=== PATIENT | female | born 1950 | race Caucasian/White ===

== ENCOUNTER 2022-10-17 20:41 | Emergency (ER) | payer BC, MEDICARE ==
[2022-10-17 21:22] LABS: BASOPHILS ABSOLUTE AUTO 0.02 K/mm3 (0.01-0.08); BASOPHILS PERCENT AUTO 0.2 % (0.1-1.2); EOSINOPHILS ABSOLUTE AUTO 0.16 K/mm3 (0.04-0.36); EOSINOPHILS PERCENT AUTO 1.9 (0.7-5.8); HEMATOCRIT 38.3 % (34.1-44.9); HEMOGLOBIN 12.5 gm/dl (11.2-15.7); IMMATURE GRAN ABSOLUTE AUTO 0.01 K/mm3 (0.00-0.10); IMMATURE GRAN PERCENT AUTO 0.1 % (<=1.0); LYMPHOCYTES ABSOLUTE AUTO 2.23 K/mm3 (1.18-3.74); LYMPHOCYTES PERCENT AUTO 26.5 % (19.3-51.7); MEAN CORPUSCULAR HEMOGLOBIN 31.4 pg (25.6-32.2); MEAN CORPUSCULAR HGB CONC 32.6 g/dl (32.2-35.5); MEAN CORPUSCULAR VOLUME 96.2 fl (79.4-94.8); MEAN PLATELET VOLUME 8.5 fl (9.4-12.3); MONOCYTES ABSOLUTE AUTO 0.86 K/mm3 (0.24-0.36); MONOCYTES PERCENT AUTO 10.2 % (4.7-12.5); NEUTROPHILS ABSOLUTE AUTO 5.14 K/mm3 (1.56-6.13); NEUTROPHILS PERCENT AUTO 61.1 % (34.0-71.1); PLATELET COUNT,PLT 269 K/mm3 (182-369); RED BLOOD CELL COUNT 3.98 M/mm3 (3.98-5.22); WHITE BLOOD CELL COUNT,WBC 8.42 K/mm3 (3.98-10.04)
[2022-10-17] MEDS ORDERED: Acetaminophen/HYDROcodone 325-5 MG Tab PO ONE (21:42)
[2022-10-17 21:44] LABS: ALBUMIN 3.6 g/dl (3.4-5.0); ANION GAP 16.3 (5-15); BILIRUBIN TOTAL 0.3 mg/dL (0.2-1.0); EST CRCL DRUG DOSING (CG) 40.22 mL/min; POTASSIUM,K 3.3 mEq/L (3.5-5.1); PROTEIN TOTAL,TP 7.4 g/dl (6.4-8.2)
== END 2022-10-17 22:07 | disposition home or self-care (01) ==
LOC: JD.ED 20:41
DX: S52.501A Unspecified fracture of the lower end of right radius, initial encounter for closed fracture (principal); S52.611A Displaced fracture of right ulna styloid process, initial encounter for closed fracture; W22.8XXA Striking against or struck by other objects, initial encounter
CPT/HCPCS: 29125; 36415; 73110; 80053; 84484; 85025; 93005; 99284; A9270